=== PATIENT | male | born 1990 | race African-American/Black ===

== ENCOUNTER 2017-09-02 13:35 | Emergency (ER) | payer OTHER ==
[~2017-09-02] VITALS: Ht 160 cm; Wt 70.0 kg
[2017-09-02 13:38] VITALS: Ht 160 cm; Wt 70.0 kg
[2017-09-02] MEDS ORDERED: TRIMETHOPRIM/SULFAMETHOX (DS) TAB PO ONE (15:00)
[2017-09-02] MEDS ORDERED: IBUPROFEN 600 MG TAB PO ONE (15:00)
--- NOTE | 2017-09-02 15:15 | ERD ---
ER Documentation Chief Complaint Chief Complaint Right foot pain/injury HPI The patient is a 27-year-old male who presents the emergency department with complaint of pain to the right foot, particularly the right second toe. The patient reports that on Thursday, while walking home after work, he leaves at some dirt and possibly glass got stuck in his shoe, and cut the medial aspect of the right second toe. When he got home he cleaned up his foot, and washed it with acetone. However, since, he has developed increased pain and swelling surrounding the site of the wound. He denies any drainage or bleeding. Denies numbness, tingling, weakness of the distal extremity. Denies restricted range of motion. Denies fevers, sweats, chills, nausea, vomiting. Denies any other complaints at this time. Tetanus status is up-to-date. ROS All systems reviewed and are negative except as per history of present illness. Medications Home Meds Active Scripts Ibuprofen* (Motrin*) 600 Mg Tab, 600 MG PO Q6, #30 TAB Prov:RYLIE RENNER PA-C 09/02/17 Sulfamethoxazole/Trimethoprim* (Bactrim Ds* Tablet) 1 Each Tablet, 1 TAB PO BID for 7 Days, #14 TAB Prov:RYLIE RENNER PA-C 09/02/17 Allergies Allergies: Coded Allergies: No Known Allergy (Unverified , 09/02/17) PMhx/Soc Medical and Surgical Hx: pt denies Medical Hx, pt denies Surgical Hx Hx Alcohol Use: No Hx Substance Use: No Hx Tobacco Use: No Smoking Status: Never smoker Physical Exam Vitals Vital Signs Date Time Temp Pulse Resp B/P Pulse Ox O2 Delivery O2 Flow Rate FiO2 09/02/17 13:38 98.2 72 72 111/72 99 Physical Exam Const: Well-developed, well-nourished, in no acute distress. Head: Atraumatic Eyes: Normal Conjunctiva ENT: Normal External Ears, Nose and Mouth. Neck: Supple. Full range of motion. Resp: Normal expiratory effort. Cardio: Normal peripheral perfusion. Distal pulses 2+. Skin: 0.3 x 0.3 cm round puncture wound to medial aspect of right 2nd toe. Mild surrounding erythema, warmth, swelling and tenderness to palpation. No foreign body visualized. No lymphatic streaking. No crepitus. Ext: No clubbing, cyanosis, or edema. Compartments are soft. Distal neurovascular status intact. Capillary refill < 2 seconds. Neur: Awake and alert. Motor and sensation intact. Psych: Cooperative. Appropriate. Results 24 hrs Current Medications Medications (Trade) Dose Ordered Sig/Constance Route PRN Reason Start Time Stop Time Status Last Admin Dose Admin Ibuprofen (Motrin) 600 mg ONCE ONCE PO 09/02/17 15:00 09/02/17 15:01 DC 09/02/17 14:46 Trimethoprim/ Sulfamethoxazole (Bactrim (Ds)) 1 tab ONCE ONCE PO 09/02/17 15:00 09/02/17 15:01 DC 09/02/17 14:46 Procedures/MDM DIAGNOSTIC TESTS AND INTERPRETATION: PROCEDURE: XR Foot. CLINICAL INDICATION: Second toe pain. Evaluate for glass foreign body. TECHNIQUE: AP, lateral and oblique views of the right foot was obtained. COMPARISON: None. FINDINGS:The bones of the foot appear intact, with no evidence of fracture, dislocation, or subluxation. The joint spaces are preserved. Bone mineralization is normal. No significant soft tissue swelling is seen. No radiopaque foreign body. IMPRESSION: 1. No fracture, dislocation, or soft tissue abnormality. 2. No radiopaque foreign body Physician Tariq Date Time Electronically viewed and signed by Physician Tariq on 09/02/2017 15:30 MEDICAL DECISION MAKING: This is a 27-year-old male presenting to the Emergency Department with complaint of spreading erythema and swelling surrounding a recent wound to the right second toe. The patient had a puncture wound noted to the medial aspect of the right second toe with surrounding erythema that is warm to touch and tender to palpation on physical examination. However, the patient's oropharynx and airway was patent, and he exhibited no breathing difficulties, wheezing, tongue swelling or lip swelling. His vital signs were stable, and he was afebrile, with no recent history of fevers or chills. The differential diagnosis includes, but is not limited to, allergic reaction, insect bite, fungal infection, cellulitis, MRSA, herpes simplex virus, herpetic blayne, paronychia, burn, abscess, Mayer Will syndrome, epidermolysis bullosa, toxic epidermal necrolysis, gout, pseudogout, septic arthritis, felon, flexor tenosynovitis, sporotrichosis. No significant abnormalities noted on x- ray imaging. No clinical findings of ulceration. After rest and application of Bacitracin, administration of Bactrim DS, the patient has no new complaints, and the patient remains stable with appropriate vital signs and no signs of respiratory distress. Upon my review and interpretation of the patient's presentation and overall ER course, I believe the patient's symptoms are most consistent with right second digit wound infection/cellulitis. No clinical findings of blayne, felon, abscess formation. No current lymphatic streaking. The patient is in stable condition and therefore he can be discharged home with prescriptions for Ibuprofen and Bactrim DS, and strict return precautions for signs of deteriorating or worsening condition. The patient is strongly advised to follow up with primary care provider within 2 days for wound check, reevaluation and further management, or return to the ER sooner for any new or worsening symptoms. Additionally, he is advised to return sooner if he notices the erythema spreading beyond the current borders. I shared my medical decision making and plan with the patient at length and in great detail, and he verbally understands and agrees with the plan for further observation and care as an outpatient. At the time of discharge all questions were answered. Departure Diagnosis: Primary Impression: Wound infection Condition: Stable Patient Instructions: Cellulitis, Recognizing and Treating Wound Infection, Wound Care Additional Instructions: Follow up with your primary medical provider in 2-3 days for wound check, reevaluation and further management. Return to the ED sooner for any new or worsening symptoms. RYLIE RENNER PA-C Sep 02, 2017 15:15
--- NOTE | 2017-09-02 15:31 | RADRPT ---
PROCEDURE: XR Foot. CLINICAL INDICATION: Second toe pain. Evaluate for glass foreign body. TECHNIQUE: AP, lateral and oblique views of the right foot was obtained. COMPARISON: None. FINDINGS: The bones of the foot appear intact, with no evidence of fracture, dislocation, or subluxation. The joint spaces are preserved. Bone mineralization is normal. No significant soft tissue swelling is se en. No radiopaque foreign body. IMPRESSION: 1. No fracture, dislocation, or soft tissue abnormality. 2. No radiopaque foreign body RPTAT:AAJJ Physician Tariq Date Time Electronically viewed and signed by Physician Tariq on 09/02/2017 15:30 SABINO/
[2017-09-02] MEDS ORDERED: SULF1TAB31 PO (15:36)
[2017-09-02] MEDS ORDERED: IBUP-1542 PO (15:36)
== END 2017-09-02 15:50 | disposition home or self-care (01) ==
LOC: FTE 13:35
DX: S91.104A Unspecified open wound of right lesser toe(s) without damage to nail, initial encounter (principal); L08.89 Other specified local infections of the skin and subcutaneous tissue; W22.8XXA Striking against or struck by other objects, initial encounter; Y92.9 Unspecified place or not applicable
CPT/HCPCS: 73630; Z7502; Z7610

== ENCOUNTER 2018-06-04 16:32 | Emergency (ER) | END 2018-06-04 19:32 | disposition home or self-care (01) ==

== ENCOUNTER 2018-06-13 13:34 | Emergency (ER) | END 2018-06-13 19:30 | disposition home or self-care (01) ==

== ENCOUNTER 2018-06-14 17:38 | Emergency (ER) | END 2018-06-14 18:01 | disposition left against medical advice (07) ==

== ENCOUNTER 2018-06-25 17:36 | Emergency (ER) | END 2018-06-25 19:35 | disposition left against medical advice (07) ==

== ENCOUNTER 2018-06-28 15:35 | Emergency (ER) | END 2018-06-28 17:42 | disposition home or self-care (01) ==

== ENCOUNTER 2018-08-23 18:48 | Emergency (ER) | END 2018-08-23 20:02 | disposition left against medical advice (07) ==